=== PATIENT | male | born 1970 | race American Indian/Alaskan Native ===

== ENCOUNTER 2019-04-09 08:00 | Day surgery (SDC) | payer OTHER ==
[2019-04-09] MEDS ORDERED: SODIUM CHLORIDE 0.9% 1000 ML 1,000 ML IV SCH (08:45)
--- NOTE | 2019-04-09 09:09 | Anesthesia Day of Surgery ---
Anesthesia Day of Surgery - Day of Surgery Patient Examined: Yes Patient H&P Reviewed: Yes Patient is NPO: Yes
--- NOTE | 2019-04-09 09:09 | Anesthesia Day of Surgery ---
Anesthesia Day of Surgery - Day of Surgery Patient Examined: Yes Patient H&P Reviewed: Yes Patient is NPO: Yes
--- NOTE | 2019-04-09 09:14 | Anesthesia Consultation ---
Anesthesia Consult and Med Hx Date of service: 04/09/19 - Airway Anesthetic Teeth Evaluation: Good ROM Head & Neck: Adequate Mental/Hyoid Distance: Adequate Mallampati Class: Class II Intubation Access Assessment: Probably Good - Pulmonary Exam CTA: Yes - Cardiac Exam Cardiac Exam: RRR - Pre-Operative Health Status ASA Pre-Surgery Classification: ASA3 Proposed Anesthetic Plan: General - Pulmonary Hx Smoking: No Hx Asthma: No Hx Respiratory Symptoms: No SOB: No COPD: No Home Oxygen Therapy: No Hx Pneumonia: No Hx Sleep Apnea: Yes (fairly compliant) - Cardiovascular System Hx Hypertension: No Hx Coronary Artery Disease: No Hx Heart Attack/AMI: No Hx Angina: No Hx Percutaneous Transluminal Coronary Angioplasty (PTCA): No Hx Cardia Arrhythmia: No Hx Pacemaker: No Hx Internal Defibrillator: No Hx Valvular Heart Disease: No Hx Heart Murmur: No Hx Peripheral Vascular Disease: No - Central Nervous System Hx Neuromuscular Disorder: No Hx Seizures: No CVA: No Hx Back Pain: No Hx Psychiatric Problems: No - Gastrointestinal Hx Ulcer: No Hx Gastroesophageal Reflux Disease: No - Endocrine Hx Renal Disease: No Hx End Stage Renal Disease: No Hx Cirrhosis: No Hx Liver Disease: No Hx Insulin Dependent Diabetes: No Hx Non-Insulin Dependent Diabetes: No Hx Thyroid Disease: No Hx Hypothyroidism: No Hx Hyperthyroidism: No - Hematic Hx Anemia: No Hx Sickle Cell Disease: No - Other Systems Hx Alcohol Use: No Hx Substance Use: No Hx Cancer: No Hx Obesity: No
[2019-04-09] MEDS ORDERED: PROPOFOL 200 MG/20 ML VIAL IV ONE ×3 (09:22)
--- NOTE | 2019-04-09 09:51 | Procedure Note ---
Date of procedure: 04/08/19 Pre-op diagnosis: Colon Polyp Screening Post-op diagnosis: other (Solitary,Sessile 10 mm rectal Polyp (snare excised)/Minor,Left colon Diverticuli/Minor,Internal Hemorrhoid) Procedure: Colonoscopy with Hot Snare Polypectomy Anesthesia: MAC Surgeon: LINDA AARON Estimated blood loss: minimal Pathology: list Specimen disposition: to lab Condition: stable Disposition: same day (Avoid aspirin and NSAID for 4 days; otherwise resume home medication and follow up in 1 to 2 weeks ([phone]).)
--- NOTE | 2019-04-09 09:53 | Operative Report ---
PROCEDURE: Colonoscopy and hot snare polypectomy. INDICATIONS: The patient is a 49-year-old -[place] gentleman who had a colonoscopy done as part of colon polyp screening. He does not give any family history of cancer. PROCEDURE: The procedure was done after getting informed consent with MAC anesthesia. Initial rectal exam was unremarkable. Instrument was passed through the rectum onto the cecum, which was identified by the ileocecal valve and the appendiceal orifice. Visualization was fair to good. The cecum was also viewed on the retroverted manner and no additional pathology was noted in the retroverted view. The terminal ileum was intubated showed normal mucosa. The cecum, ascending colon, and transverse colon showed normal mucosa. There were a minor few minor diverticula noted in the left colon. In the rectum, there was a 10 mm sessile polyp noted. Photodocumentation was obtained and it was removed by hot snare polypectomy. Minimal bleeding from the polypectomy site. No complications associated with the procedure. The rectum also showed minor internal hemorrhoid on the retroverted view. ASSESSMENT: Colon polyp screening, 10 mm sessile solitary rectal polyp. Minor left colon diverticula, minor internal hemorrhoid. The patient will be asked to avoid aspirin and aspirin-related products for the next few days and follow up in the office in 1-2 weeks' time. Otherwise, resume home medications. The procedure was done in the GI lab with assistance of the GI lab team, which included RN, Leah Deras, ish Gambino and with assistance of anesthesia. JOB# [id number] SAMIA/JOSE
[2019-04-09 12:20] VITALS: BP 142/91
== END 2019-04-09 08:01 | disposition home or self-care (01) ==
LOC: GIO 08:00
DX: Z12.11 Encounter for screening for malignant neoplasm of colon (principal); K62.1 Rectal polyp; K64.8 Other hemorrhoids; K57.30 Diverticulosis of large intestine without perforation or abscess without bleeding; G47.30 Sleep apnea, unspecified; Z98.890 Other specified postprocedural states; Z88.8 Allergy status to other drugs, medicaments and biological substances
CPT/HCPCS: 45385; 88305; J2704; J7030